=== PATIENT | female | born 1945 | race African-American/Black ===

== ENCOUNTER 2019-11-21 14:11 | Inpatient (IN) | payer OTHER ==
[2019-11-21] VITALS (23 sets, daily range): BP systolic 70–202; BP diastolic 48–179
[~2019-11-21] VITALS: Ht 177.8 cm; Wt 85.4 kg
--- NOTE | ~2019-11-21 | EEG ---
[facility] [place] [address] ELECTROENCEPHALOGRAM Name: EMILEE LEMUS Room #: 239-P [facility] IN M.R.#: [id number] Admission: 11/21/19 Attend Phys: Adrian Rutherford MD Discharge: Date of : 43 Report #: [id number] THIS REPORT FOR: //name// CC: Adrian Roche DATE OF SERVICE: 12/04/2019 This patient is being evaluated for altered mental status. EEG is very poorly formed and disorganized. Background activity is about 5-6 Hz and 15 microvolt. Photic stimulation is unremarkable. The patient is unresponsive. IMPRESSION: This is a very disorganized and poorly formed EEG. This can occur with encephalopathy or advanced dementia. However, clinical correlation is recommended. Thank you very much for this referral. By: 1000 1023 Adama Whitlock MD /nt
--- NOTE | ~2019-11-21 | EMS ---
[address] [address] EMS Patient Care Report Name: EMILEE LEMUS Room #: 236-P [facility] IN M.R.#: [id number] Admission: 11/21/19 Attend Phys: Adrian Rutherford MD Discharge: Date of : 43 Report #: [id number] THIS REPORT FOR: //name// Report Transmitted: 11/28/2019 15:48 EMS Care Summary [place], [place]/[facility] Incident [id number] @ 11/21/2019 13:39 Incident Location [id number] [place] [address] [address] [place] Patient EMILEE LEMUS Female, 73 Years 1945 Patient Address [address] [place] [address] Patient History Dementia,Hypertension (HTN),Gastro-Esophageal Reflux Disease (GERD),Osteoarthritis,Anemia,Peripheral Vascular Disease,Type 2 Diabetes, Patient Allergies No known allergies, Patient Medications Novolog, Metformin, Aricept, Lisinopril, Aspirin, Levemir, Tylenol, Chief Complaint Acute hypoxia Disposition Transported No Lights/[place] Dispatch Reason Breathing Problem Transported To [facility] Narrative Station 28 responded immediately to the scene of Breathing Problems. Arrived on scene and staff meets us at doors with patient. [facility] [address] [place] [address] EMS Patient Care Report Name: EMILEE LEMUS Room #: 236-P [facility] IN .Samuel.#: [id number] Admission: 11/21/19 Attend Phys: Adrian Rutherford MD Discharge: Date of : 43 Report #: [id number] M528 dons full PPE including N95's, then meets staff who have patient in bed (EMS then asked them to place mask on pt). Staff report they have been unable to get patient's SpO2 > 88% despite supplemental o2. Patient reportedly COVID19 + by testing, but staff do not know when or where patient was tested. Rather than keeping patient on supplemental o2, they removed patient prior to EMS arrival. Cot next to bed and patient moved across via sheet pull. Secured on via straps, rails up, then patient moved out to ambulance. Exhaust vent on, divider door closed. Primary ALS assessment performed. Vitals established. Pt resumed on o2 via NC, but increased to 6 LPM. Transport then initiated to [facility]. Contacted with a 3-5 minute ETA, and report given. During transport, patient's SpO2 improves to mid-90's on 6 LPM. Attendant remained behind patient, in captains chair. Arrived at and patient to ER 15. Report to RN then care released. Initial Vitals @14:04P: 109,R: 21,BP: 136/80,Pain: 0/10,GCS: 14,CO: 3,SpO2: 96,Revised Trauma: 12, @13:56P: 104,R: 24,BP: 145/78,GCS: 14,SpO2: 80,Revised Trauma: 12, Assessments @13:55MENTAL:Confused,SKIN:HEENT:LUNG SOUNDS:ABDOMEN:PELVIS//GI:EXTREMITIES:PULSE:NEURO: Impression COVID-19 - Confirmed by testing Procedures @13:55ALS AssessmentResponse: UnchangedSucceeded@13:57Oxygen FlowRate: 6 Device: Nasal Cannula (NC) Response: ImprovedSucceeded Timeline 13:37,Call Received 13:37,Dispatch Notified 13:39,Dispatched 13:42,En Route 13:45,On Scene 13:48,At Patient 13:55,ALS Assessment,Response: UnchangedSucceeded, 13:56,BP: 145/78 M,PULSE: 104,RR: 24 R,SPO2: 80 Ox,ETCO2: ,BG: ,PAIN: ,GCS: 14, 13:57,Oxygen FlowRate: 6 Device: Nasal Cannula (NC) Response: ImprovedSucceeded, 14:04,BP: 136/80 M,PULSE: 109,RR: 21 R,SPO2: 96 Ox,ETCO2: ,BG: ,PAIN: 0,GCS: 14, [address] [address] EMS Patient Care Report Name: SCOTTY LEMUSALDINE Room #: 236-P [facility] IN ..#: [id number] Admission: 11/21/19 Attend Phys: Adrian Rutherford MD Discharge: Date of : 43 Report #: [id number] 14:06,Depart Scene 14:06,At Destination 14:21,Call Closed Disclaimer v1.1 Copyright 2020 [employer] This EMS Care Summary contains data elements from the applicable legal record (which may be displayed differently). It is designed to provide pertinent information for the following purposes: continuity of care, clinical quality, and state data reporting. The complete legal record is available to ED staff and administrators of the receiving hospital in [employer] Patient Tracker. All data is provided "as is."
[~2019-11-21 14:11] MED LIST: ACETAMINOPHEN325 M1 PO; ARICEPT10 M1 PO; ARICEPT10 MG PO; COMPAZINE10 M1 PO; ESCITALOPRAM OXA5 MG PO; FERRO-TIME325 MG PO; GLUCOPHAGE1000 MG PO; HUMALOG100 UNIT/1 SQ; IBUPROFEN 600600 M1 PO; LANTUS SC; LEVEMIR FL100 UNIT/2 SUBQ; LISINOPRIL20 MG PO; LOPERAMIDE 2 MG2 M1 PO; LOPRESSOR25 PO; MECLIZINE HCL25 M1 PO; MI ACID LIQUID355 ML PO; MOM PO; NORCO 5-325 TA1 EACH PO; NOVOLOG100 UNIT/1 SUBQ; PRINIVIL20 MG PO; ZOCOR; ZOFRAN4 MG PO
[2019-11-21 14:48] LABS: ABSOLUTE NEUTROPHILS 5.6 thou/uL (1.4-8.2); BASOPHILS 0.3 % (0.0-2.0); EOSINOPHILS 1.8 % (0.0-3.0); HEMATOCRIT 38.9 % (37.0-47.0); HEMOGLOBIN 12.9 gm/dL (12.0-15.0); MCHC 33.2 g/dL (28.0-37.0); MCV 72.2 fL (80.0-100.0); MONOCYTES 9.9 % (1.0-8.0); PLATELET COUNT 296 thou/uL (150-400); RBC 5.38 mil/uL (4.20-5.00); RDW 15.2 % (10.5-14.5); WBC 7.9 thou/uL (4.0-11.0)
[2019-11-21 14:59] LABS: ANION GAP 15 mmol/L (7-16); BUN 46 mg/dL (7-18); CALCIUM 9.1 mg/dL (8.5-10.1); CHLORIDE 103 mmol/L (98-107); CO2 19 mmol/L (21-32); CREATININE 2.1 mg/dL (0.6-1.0); GLUCOSE 229 mg/dL (74-106); POTASSIUM 4.3 mmol/L (3.5-5.1); SODIUM 137 mmol/L (136-145)
[2019-11-21 15:09] LABS: ALBUMIN 2.3 g/dL (3.4-5.0); DIRECT BILIRUBIN 0.1 mg/dL (<0.1-0.2); SGOT 57 U/L (15-37); SGPT 30 U/L (30-65); TOTAL BILIRUBIN 0.4 mg/dL (0.2-1.0); TOTAL PROTEIN 7.9 g/dL (6.4-8.2); TROPONIN-I <0.06 ng/mL (<0.06)
[2019-11-21] MEDS ORDERED: ASPIR 8181 M1 PO (15:29)
[2019-11-21 15:49] LABS: BE(vivo) -8.1 mmol/L (-2 to +3); HCO3 14.6 mmol/L (22.0-26.0); sO2 89.2 % (92.0-98.0)
[2019-11-21 15:50] LABS: PCO2 23.5 mmHg (35.0-45.0)
[2019-11-22] VITALS (75 sets, daily range): BP systolic 99–148; BP diastolic 47–85
[2019-11-22 04:53] LABS: HEMATOCRIT 35.1 % (37.0-47.0); HEMOGLOBIN 11.6 gm/dL (12.0-15.0); MCH 24.1 pg (26.0-34.0); RBC 4.81 mil/uL (4.20-5.00); RDW 15.5 % (10.5-14.5); WBC 8.6 thou/uL (4.0-11.0)
[2019-11-22 05:08] LABS: ALBUMIN 1.9 g/dL (3.4-5.0); CALCIUM 8.3 mg/dL (8.5-10.1); CREATININE 2.1 mg/dL (0.6-1.0); POTASSIUM 4.4 mmol/L (3.5-5.1); TOTAL BILIRUBIN 0.3 mg/dL (0.2-1.0); TOTAL PROTEIN 6.7 g/dL (6.4-8.2)
[2019-11-22 05:19] LABS: BE(vivo) -12.7 mmol/L (-2 to +3); HCO3 11.7 mmol/L (22.0-26.0); PO2 157.1 mmHg (80.0-100.0); sO2 98.9 % (92.0-98.0)
[2019-11-22 05:20] LABS: PCO2 23.9 mmHg (35.0-45.0); pH 7.309 (7.360-7.450)
--- NOTE | 2019-11-22 07:54 | EKG ---
[facility] [place] [address] ELECTROCARDIOGRAM REPORT Name: EMILEE LEMUS Room #: 236-P [facility] IN M.R.#: [id number] Admission: 11/21/19 Attend Phys: Adrian Rutherford MD Discharge: Date of : 43 Report #: [id number] THIS REPORT FOR: cc: Yayo Roche MD, Srinath MD Lundgren,Albert Cummings MD [facility] ~ THIS REPORT FOR: //name// [facility] ED Test Date: 2019-11-21 Test Time: 14:18:51 Pat Name: EMILEE LEMUS Department: Room: [facility] Gender: F Head Custodian: : 1945 Requested By: Cyndee Lea Order Number: [id number] MD: Albert Mcdaniels Measurements Intervals [place] Rate: 105 P: 41 SD: 147 QRS: -3 QRSD: 90 T: 46 QT: 349 QTc: 462 Interpretive Statements Sinus tachycardia Abnormal R-wave progression, early transition Left ventricular hypertrophy Compared to ECG 03/02/2012 16:12:47 Heart rate has increased Electronically Signed On 11-22-2019 7:54:49 CDT by Albert Mcdaniels [email or web address] <ELECTRONICALLY SIGNED> By: Albert Mcdaniels MD, [facility] 11/22/19 0754 1418 1418 Albert Mcdaniels MD, [facility] /EPI
[2019-11-22 13:10] LABS: BE(vivo) -13.8 mmol/L (-2 to +3); HCO3 12.5 mmol/L (22.0-26.0); PCO2 30.5 mmHg (35.0-45.0); PO2 102.3 mmHg (80.0-100.0); sO2 96.7 % (92.0-98.0)
[2019-11-22 13:12] LABS: pH 7.229 (7.360-7.450)
[2019-11-22 15:16] LABS: CALCIUM 8.3 mg/dL (8.5-10.1)
[2019-11-22 15:20] LABS: POTASSIUM 5.4 mmol/L (3.5-5.1)
[2019-11-22 16:14] LABS: URINE BILIRUBIN NEGATIVE (Negative); URINE BLOOD TRACE (Negative); URINE CLARITY CLOUDY; URINE COLOR YELLOW; URINE GLUCOSE-RANDOM* 2+ (Negative); URINE KETONES TRACE (Negative); URINE LEUKOCYTES 2+ (Negative); URINE NITRITE NEGATIVE (Negative); URINE PROTEIN (DIPSTICK) 1+ (Negative); URINE UROBILINOGEN 0.2 E.U./dl (0.2-1.0)
[2019-11-22 16:27] LABS: AMORPHOUS URATES Moderate /LPF (None Seen); BACTERIA >30 Many /HPF (None Seen); CASTS None Seen /LPF (None Seen); SQUAMOUS None Seen /LPF (0-3); URINE RBC 0-2 Rare /HPF (0-2); URINE WBC >25 Many /HPF (0-5)
[2019-11-23] VITALS (28 sets, daily range): BP systolic 105–182; BP diastolic 51–80
[2019-11-23 02:06] LABS: HIV ANTIBODY Non Reactive (Non Reactive)
[2019-11-23 05:05] LABS: BE(vivo) -11.4 mmol/L (-2 to +3); HCO3 14.7 mmol/L (22.0-26.0); PCO2 33.8 mmHg (35.0-45.0); PO2 76.8 mmHg (80.0-100.0); sO2 93.6 % (92.0-98.0)
[2019-11-23 05:06] LABS: pH 7.256 (7.360-7.450)
[2019-11-23 05:33] LABS: ABSOLUTE NEUTROPHILS 6.1 thou/uL (1.4-8.2); BASOPHILS 0.3 % (0.0-2.0); EOSINOPHILS 0.1 % (0.0-3.0); HEMATOCRIT 34.1 % (37.0-47.0); HEMOGLOBIN 11.1 gm/dL (12.0-15.0); LYMPHOCYTES 6.8 % (24.0-44.0); MCH 23.8 pg (26.0-34.0); MCHC 32.4 g/dL (28.0-37.0); MCV 73.4 fL (80.0-100.0); MONOCYTES 4.8 % (1.0-8.0); PLATELET COUNT 260 thou/uL (150-400); RBC 4.65 mil/uL (4.20-5.00); RDW 15.6 % (10.5-14.5); WBC 6.9 thou/uL (4.0-11.0)
[2019-11-23 06:24] LABS: PROTIME 10.5 Seconds (9.3-11.4)
[2019-11-23 06:29] LABS: FIBRINOGEN 728.9 mg/dL (210-360)
[2019-11-23 06:57] LABS: ALBUMIN 1.9 g/dL (3.4-5.0); CALCIUM 8.8 mg/dL (8.5-10.1); CREATININE 1.9 mg/dL (0.6-1.0); TOTAL BILIRUBIN 0.3 mg/dL (0.2-1.0); TOTAL PROTEIN 6.9 g/dL (6.4-8.2)
--- NOTE | 2019-11-23 12:36 | HC ---
[facility] [place] [address] CONSULTATION Name: EMILEE LEMUS Room #: 236-P [facility] IN M.R.#: [id number] Admission: 11/21/19 Attend Phys: Adrian Rutherford MD Discharge: Date of : 43 Report #: [id number] THIS REPORT FOR: cc: Yayo Roche MD,Pk Arrington MD, MD ~ CC: Adrian Roche DATE OF SERVICE: 11/22/2019 ENDOCRINE CONSULTATION NOTE CONSULTING PHYSICIAN: Dr. Rutherford. REASON FOR CONSULTATION: Uncontrolled type 2 diabetes mellitus. HISTORY OF PRESENT ILLNESS: This is a 73-year-old female patient whose medical background is significant for multiple medical issues including type 2 diabetes mellitus, dementia, peripheral vascular disease and GERD who presented to the ER yesterday after being referred from her [facility] facility due to progressive issues with shortness of breath. It appears that the patient was one of several care home residents who were diagnosed with COVID-19 positive test. On arrival, the patient was found to be in hypoxemic respiratory failure and ended up being placed on mechanical ventilation. The patient is known to have type 2 diabetes mellitus and is maintained on a regimen of Levemir insulin 45 units at bedtime in addition to NovoLog insulin 18 units before meals as well as metformin 1000 mg b.i.d. Specific blood glucose data are not available to review at this point in time. Also, the patient is known to have hypertension and is maintained on lisinopril 20 mg b.i.d. REVIEW OF SYSTEMS: Cannot be obtained at this point in time due to the patient's sedated and intubated state, but reportedly: PULMONARY: Shortness of breath, cough. PSYCHIATRIC: Confusion, behavioral changes. CARDIAC: Negative for chest pain, palpitations, or syncope. PAST MEDICAL HISTORY: 1. Type 2 diabetes mellitus. 2. Peripheral vascular disease. 3. Iron deficiency anemia. 4. Dementia. 5. GERD. [facility] [address] [place] [address] CONSULTATION Name: LEMUSEMILEE Room #: [address] [place] [address] IN M.R.#: [id number] Admission: 11/21/19 Attend Phys: Adrian Rutherford MD Discharge: Date of : 43 Report #: [id number] 6. Acute hypoxemic respiratory failure. 7. COVID-19 positive state. 8. Metabolic acidosis. 9. Metabolic encephalopathy. ACTIVE OUTPATIENT MEDICATIONS: Include Levemir insulin 45 units at bedtime, NovoLog insulin 18 units before meals, metformin 1000 mg b.i.d., Tylenol q. 8 hours p.r.n., aspirin 81 mg daily, lisinopril 20 mg b.i.d., ferrous sulfate 325 mg p.o. daily, ibuprofen 600 mg q. 8 hours p.r.n., metoprolol 25 mg p.o. b.i.d., [place] 5/325 mg tablet t.i.d., escitalopram 5 mg daily, Imodium 2 mg q. 6 hours p.r.n., Compazine. ALLERGIES: No known drug allergies. FAMILY HISTORY: Not available. SOCIAL HISTORY: The patient resides at a usp facility. There are no reports of active tobacco or alcohol use. PHYSICAL EXAMINATION: GENERAL: -Sudanese female patient, intubated and sedated. VITAL SIGNS: Blood pressure is 108/52 mmHg, heart rate is 95 beats per minute, respirations 22 per minute, temperature 37.3 degrees Celsius. CONSTITUTIONAL: Intubated and sedated. HEENT: Anicteric sclerae. NECK: No thyromegaly. CHEST: Limited air entry bilaterally with diffuse rales and rhonchi. No crackles. HEART: Regular rate and rhythm without murmurs or gallops. ABDOMEN: Soft, lax. No guarding. Sluggish bowel sounds. EXTREMITIES: Lower extremity exam, edema. No skin breaks. NEUROLOGIC: Sedated. PSYCHIATRIC: Sedated. LABORATORY RESULTS: On arrival, blood glucose was 290 and went up to 479 mg/dL. Sodium 137, potassium 5.4, chloride 106, CO2 of 16, anion gap 15, BUN 42, creatinine 2.0, glucose 479. AST 40, total bilirubin 0.3, calcium 8.3, alkaline phosphatase 68, ALT 23, total protein 6.7, albumin 1.9, EGFR 30. Troponin less than 0.06, triglycerides 119. White blood count 8.6, hemoglobin 11.6, hematocrit 35.9, platelets 256. Hemoglobin A1c 8.5%. COVID-19 testing was positive. ASSESSMENT AND PLAN: 1. Type 2 diabetes mellitus. As noted above, the patient is known to have type 2 diabetes mellitus that is [facility] [address] [facility] [place] [address] CONSULTATION Name: LEMUSEMILEE Room #: 236-P [facility] IN M.R.#: [id number] Admission: 11/21/19 Attend Phys: Adrian Rutherford MD Discharge: Date of : 43 Report #: [id number] insulin dependent. Judging by her hemoglobin A1c, it appears that she runs blood glucose values in the mid to high 100 mg/dL range, but she has had an outlook of severe hyperglycemia during her hospital stay so far. This very well might be due to the current acute illness state as well as the use of high dose glucocorticoid therapy. Given the patient's glucose values and background therapy, I will start the patient on Lantus insulin 25 units b.i.d. as well as Humalog supplemental scale, moderate intensity, with a plan to monitor her blood glucose values a.c. and at bedtime. That said, I would have a low threshold to initiate therapy with IV insulin as per [facility] IV insulin protocol should we see that the patient is not changing her glycemic outlook quickly with this intervention. 2. Hypertension. The patient's level of blood pressure control is adequate. Continue this current regimen. 3. Pneumonia. The patient is COVID-19 positive and is currently dealing with the issue of hypoxemic failure. She is mechanically ventilated and is receiving high dose glucocorticoid therapy as well as antibiotic therapy with Maxipime. The pulmonary team is following. I certainly appreciate this consultation by Dr. Rutherford. I have reviewed the patient's clinical care notes, laboratory data, and other pertinent information for more than 35 minutes in addition to my encounter time with the patient. <ELECTRONICALLY SIGNED> By: Pk Kelley MD 11/23/19 1236 1611 1659 Ahjennifer Kelley MD /nt
[2019-11-24] VITALS (23 sets, daily range): BP systolic 98–162; BP diastolic 40–80
[2019-11-24 06:21] LABS: CALCIUM 8.5 mg/dL (8.5-10.1); CREATININE 1.6 mg/dL (0.6-1.0); POTASSIUM 3.9 mmol/L (3.5-5.1)
[2019-11-25] VITALS (24 sets, daily range): BP systolic 112–162; BP diastolic 56–77
[2019-11-25 07:13] LABS: CALCIUM 8.6 mg/dL (8.5-10.1); CREATININE 1.6 mg/dL (0.6-1.0); POTASSIUM 3.4 mmol/L (3.5-5.1)
[2019-11-25 11:39] LABS: HEMATOCRIT 32.9 % (37.0-47.0); MCH 23.8 pg (26.0-34.0); MCHC 33.4 g/dL (28.0-37.0); MCV 71.1 fL (80.0-100.0); RBC 4.63 mil/uL (4.20-5.00); RDW 15.8 % (10.5-14.5); WBC 7.3 thou/uL (4.0-11.0)
[2019-11-26] VITALS (19 sets, daily range): BP systolic 101–166; BP diastolic 52–85
[2019-11-26 05:46] LABS: HEMATOCRIT 33.8 % (37.0-47.0); HEMOGLOBIN 11.3 gm/dL (12.0-15.0); MCH 24.1 pg (26.0-34.0); MCHC 33.4 g/dL (28.0-37.0); MCV 72.1 fL (80.0-100.0); RBC 4.69 mil/uL (4.20-5.00); RDW 16.2 % (10.5-14.5); WBC 7.6 thou/uL (4.0-11.0)
[2019-11-26 05:50] LABS: CALCIUM 8.5 mg/dL (8.5-10.1); CREATININE 1.5 mg/dL (0.6-1.0); POTASSIUM 3.4 mmol/L (3.5-5.1)
[2019-11-27] VITALS (17 sets, daily range): BP systolic 89–170; BP diastolic 48–82
[2019-11-27 05:29] LABS: BE(vivo) -6.6 mmol/L (-2 to +3); HCO3 16.8 mmol/L (22.0-26.0); PCO2 27.6 mmHg (35.0-45.0); pH 7.401 (7.360-7.450); sO2 90.7 % (92.0-98.0)
[2019-11-27 08:04] LABS: HEMATOCRIT 33.1 % (37.0-47.0); HEMOGLOBIN 11.1 gm/dL (12.0-15.0); MCH 24.1 pg (26.0-34.0); MCHC 33.7 g/dL (28.0-37.0); MCV 71.4 fL (80.0-100.0); RBC 4.63 mil/uL (4.20-5.00); RDW 15.8 % (10.5-14.5)
[2019-11-27 08:12] LABS: CALCIUM 8.3 mg/dL (8.5-10.1); CREATININE 1.6 mg/dL (0.6-1.0); POTASSIUM 3.5 mmol/L (3.5-5.1)
[2019-11-28] VITALS (24 sets, daily range): BP systolic 90–143; BP diastolic 47–74
[2019-11-28 06:15] LABS: HEMATOCRIT 34.9 % (37.0-47.0); HEMOGLOBIN 11.5 gm/dL (12.0-15.0); MCH 23.7 pg (26.0-34.0); MCV 71.9 fL (80.0-100.0); RBC 4.86 mil/uL (4.20-5.00); RDW 15.9 % (10.5-14.5); WBC 10.6 thou/uL (4.0-11.0)
[2019-11-28 06:35] LABS: CALCIUM 8.3 mg/dL (8.5-10.1); CREATININE 1.6 mg/dL (0.6-1.0); POTASSIUM 3.4 mmol/L (3.5-5.1)
[2019-11-29] VITALS (23 sets, daily range): BP systolic 90–154; BP diastolic 49–75
[2019-11-29 05:25] LABS: CALCIUM 8.1 mg/dL (8.5-10.1); CREATININE 1.9 mg/dL (0.6-1.0); POTASSIUM 3.6 mmol/L (3.5-5.1)
[2019-11-30] VITALS (26 sets, daily range): BP systolic 116–183; BP diastolic 53–87
[2019-11-30 06:41] LABS: HEMATOCRIT 33.3 % (37.0-47.0); HEMOGLOBIN 10.7 gm/dL (12.0-15.0); MCH 23.2 pg (26.0-34.0); MCV 72.6 fL (80.0-100.0); RBC 4.59 mil/uL (4.20-5.00); RDW 15.8 % (10.5-14.5); WBC 9.2 thou/uL (4.0-11.0)
[2019-11-30 07:06] LABS: CALCIUM 8.3 mg/dL (8.5-10.1); CREATININE 1.7 mg/dL (0.6-1.0); POTASSIUM 3.3 mmol/L (3.5-5.1)
[2019-12-01] VITALS (25 sets, daily range): BP systolic 106–165; BP diastolic 44–93
[2019-12-01 05:49] LABS: MCH 23.4 pg (26.0-34.0); MCHC 32.3 g/dL (28.0-37.0); MCV 72.3 fL (80.0-100.0); RBC 4.7 mil/uL (4.20-5.00); RDW 15.6 % (10.5-14.5); WBC 11.4 thou/uL (4.0-11.0)
[2019-12-01 06:04] LABS: CALCIUM 8.5 mg/dL (8.5-10.1); CREATININE 1.6 mg/dL (0.6-1.0)
[2019-12-01 06:06] LABS: POTASSIUM 3.9 mmol/L (3.5-5.1)
[2019-12-02] VITALS (24 sets, daily range): BP systolic 106–147; BP diastolic 63–81
[2019-12-02 05:04] LABS: HEMATOCRIT 34.9 % (37.0-47.0); HEMOGLOBIN 11.3 gm/dL (12.0-15.0); MCH 23.4 pg (26.0-34.0); MCHC 32.4 g/dL (28.0-37.0); MCV 72.1 fL (80.0-100.0); RBC 4.84 mil/uL (4.20-5.00); RDW 15.6 % (10.5-14.5); WBC 13.1 thou/uL (4.0-11.0)
[2019-12-02 05:12] LABS: CALCIUM 8.6 mg/dL (8.5-10.1); POTASSIUM 4.5 mmol/L (3.5-5.1)
[2019-12-03] VITALS (23 sets, daily range): BP systolic 97–159; BP diastolic 44–76
[2019-12-03 04:43] LABS: CALCIUM 8.4 mg/dL (8.5-10.1); CREATININE 2.2 mg/dL (0.6-1.0); POTASSIUM 4.2 mmol/L (3.5-5.1)
[2019-12-03 09:16] LABS: BE(vivo) -8.8 mmol/L (-2 to +3); HCO3 14.9 mmol/L (22.0-26.0); PO2 86.9 mmHg (80.0-100.0); pH 7.375 (7.360-7.450); sO2 96.6 % (92.0-98.0)
[2019-12-04] VITALS (20 sets, daily range): BP systolic 125–157; BP diastolic 45–79
[2019-12-04 03:59] LABS: BE(vivo) -4.1 mmol/L (-2 to +3); PO2 104.1 mmHg (80.0-100.0); pH 7.401 (7.360-7.450); sO2 97.8 % (92.0-98.0)
[2019-12-04 06:08] LABS: ABSOLUTE NEUTROPHILS 7.2 thou/uL (1.4-8.2); BASOPHILS 1.1 % (0.0-2.0); EOSINOPHILS 3.6 % (0.0-3.0); HEMATOCRIT 29.4 % (37.0-47.0); HEMOGLOBIN 10.1 gm/dL (12.0-15.0); LYMPHOCYTES 13.7 % (24.0-44.0); MCH 24.9 pg (26.0-34.0); MCHC 34.3 g/dL (28.0-37.0); MCV 72.7 fL (80.0-100.0); MONOCYTES 8.9 % (1.0-8.0); PLATELET COUNT 285 thou/uL (150-400); POLYS 72.7 % (36.0-66.0); RBC 4.04 mil/uL (4.20-5.00); RDW 15.8 % (10.5-14.5); WBC 9.9 thou/uL (4.0-11.0)
[2019-12-04 06:59] LABS: ALBUMIN 1.8 g/dL (3.4-5.0); CALCIUM 8.2 mg/dL (8.5-10.1); POTASSIUM 4.1 mmol/L (3.5-5.1); TOTAL BILIRUBIN 0.3 mg/dL (0.2-1.0)
[2019-12-05] VITALS (19 sets, daily range): BP systolic 117–174; BP diastolic 46–79
[2019-12-05 00:07] LABS: ADENOVIRUS Negative (Negative); INFLUENZA A Negative (Negative); INFLUENZA B Negative (Negative); METAPNEUMOVIRUS Negative (Negative); PARAINFLUENZA 1 Negative (Negative); PARAINFLUENZA 2 Negative (Negative); PARAINFLUENZA 3 Negative (Negative); RHINOVIRUS Negative (Negative); RSV A Negative (Negative); RSV B Negative (Negative)
[2019-12-05 05:30] LABS: HCO3 17.5 mmol/L (22.0-26.0); PCO2 31.9 mmHg (35.0-45.0); PO2 83.8 mmHg (80.0-100.0); pH 7.358 (7.360-7.450)
--- NOTE | 2019-12-05 09:42 | HC ---
[facility] [place] [address] CONSULTATION Name: EMILEE LEMUS Room #: 239- ADM IN M.R.#: [id number] Admission: 11/21/19 Attend Phys: Adrian Rutherford MD Discharge: Date of : 43 Report #: [id number] THIS REPORT FOR: cc: Yayo Roche MD,Yayo Whitlock,Adama Arroyo MD ~ CC: Adrian Roche DATE OF SERVICE: 12/04/2019 HISTORY OF PRESENT ILLNESS: This is a 73-year-old female patient who was evaluated by me to prognosticate this patient. The patient is unable to provide any history at all. I talked to Dr. Cardoso, the hospitalist. Then, I talked to the family. They tell me that this patient is living in a [facility] for several years. She needed help in her day-to-day activities. She is able to recognize some of the relative, but not all the relative. She usually does not know month or year. She developed COVID and, as I understand, may have suffered some respiratory problem. Record indicate when she came to Emergency Room, she was on 4 liters of oxygen. She was tachycardic. She was tachypneic. Now, she is without any sedation and she is not doing much according to the nurses. REVIEW OF SYSTEMS: Indicate that she has a history of renal problem, hypoxic respiratory failure, metabolic acidosis, sepsis secondary to above. This was a relevant 14-point review of system. PAST MEDICAL HISTORY: Positive for what appeared to be significant dementia in the baseline. FAMILY HISTORY: Unremarkable. SOCIAL HISTORY: She lives in a [facility]. PHYSICAL EXAMINATION: Very limited. She does respond to pain. When I tried to examine her pupils, she repeatedly shuts her eyes tight. This is a voluntary response. I cannot do any further examination I attempted because of that. She appeared to be tachycardic because her blood pressure is 157/79, pulse is 118, respiration is 29. LABORATORY DATA: Her estimated GFR is 30 and it has been around there for a long time, but in 2008, it was in 50s, but this admission it has been low. IMPRESSION: This patient has multiple problems. It looks like she has a pretty significant dementia in the baseline. She has hydrocephalus, which is an incidental finding, although maybe contributing to her chronic dementia. Even if you treat hydrocephalus, the dementia portion is not reversible. Even on the [facility] [address] [place] [address] CONSULTATION Name: EMILEE LEMUS Room #: 239-P [facility] IN [facility]#: [id number] Admission: 11/21/19 Attend Phys: Adrian Rutherford MD Discharge: Date of : 43 Report #: [id number] basis of that, she should be a DNR. She has developed multiple other problems that include renal failure, respiratory problems, etc. Those add to her preexisting problem, which are very severe. Family has been given the option, and as I said even without all these illnesses, she should be a DNR, but the family still wants to continue all the life support, but they said they will think about it. I am not sure what we can do if that is what their wishes were and that is what the patient's wishes were. I will discuss the patient with you and this patient will not meet the criteria for the brain and we need to basically do what the family wants us to do. In short this patient's quality of life quite poor even before present hospitalisation and case can be made that she should have been DNR even then. It is expected to be worst with the present illness. But daughter wants her to be full code. There is not much can be done because she is not brain and need to follow what they say. I will sign off. Please call if any quesion Thank you very much for this referral. <ELECTRONICALLY SIGNED> By: Adama Whitlock MD 12/05/19 0942 23 34 Adama Whitlock MD /nt
[2019-12-06] VITALS (21 sets, daily range): BP systolic 94–153; BP diastolic 36–74
[2019-12-06 04:58] LABS: BE(vivo) -2.5 mmol/L (-2 to +3); HCO3 21.1 mmol/L (22.0-26.0); PO2 92.9 mmHg (80.0-100.0); pH 7.424 (7.360-7.450); sO2 97.3 % (92.0-98.0)
--- NOTE | 2019-12-06 11:54 | HC ---
[facility] [place] [address] CONSULTATION Name: EMILEE LEMUS Room #: 239-P [facility] IN M.R.#: [id number] Admission: 11/21/19 Attend Phys: Adrian Rutherford MD Discharge: Date of : 43 Report #: [id number] THIS REPORT FOR: cc: Yayo Roche MD,Pk Arrington MD, MD ~ CC: Adrian Roche DATE OF SERVICE: 12/04/2019 ENDOCRINE CONSULTATION NOTE CONSULTING PHYSICIAN: Dr. Rutherford. REASON FOR CONSULTATION: Uncontrolled type 2 diabetes mellitus. HISTORY OF PRESENT ILLNESS: This is a 73-year-old female patient whose medical background is significant for multiple medical issues including type 2 diabetes mellitus, peripheral vascular disease as well as dementia. The patient presented on the day of admission as a transfer from her snf facility with complaints of shortness of breath. The patient was found to be positive for COVID-19 amongst 16 other people at her snf facility. She was admitted for further care and monitoring where she shortly after that developed respiratory failure and was intubated. Again, the patient's background is noted for type 2 diabetes mellitus and her snf facility's records show that she had been treated with a combination of Levemir insulin 45 units at bedtime, NovoLog insulin 18 units with meals, metformin 1000 mg b.i.d. The patient is currently sedated, intubated and inaccessible for history and I am not aware of her level of control prior to her admission and there is no documentation as to whether or not she has issues with diabetic retinopathy, nephropathy or neuropathy. Further review of her records indicates that she is hypertensive and is maintained on therapy with lisinopril 20 mg b.i.d. and demented and is on treatment with Aricept 10 mg daily. REVIEW OF SYSTEMS: Cannot be obtained at this point in time due to the patient's intubated and sedated state. PAST MEDICAL HISTORY: 1. Type 2 diabetes mellitus. 2. Hypertension. 3. Dementia. 4. Peripheral vascular disease. [address] [address] CONSULTATION Name: ALLANEMILEE Room #: 239-P [facility] IN ..#: [id number] Admission: 11/21/19 Attend Phys: Adrian Rutherford MD Discharge: Date of : 43 Report #: [id number] 5. Multiple abscesses in the past. OUTPATIENT MEDICATIONS: Include: 1. Levemir insulin 45 units at bedtime. 2. NovoLog insulin 18 units t.i.d. a.c. 3. Metformin 1000 mg b.i.d. 4. Tylenol 650 mg q. 8 hours p.r.n. 5. Aspirin 81 mg daily. 6. Aricept 10 mg at bedtime. 7. Lisinopril 20 mg b.i.d. ALLERGIES: No known drug allergies. FAMILY HISTORY: Noncontributory. SOCIAL HISTORY: The patient resides at a snf facility. There is no documentation of tobacco use or alcohol use. PHYSICAL EXAMINATION: GENERAL: Elderly female patient who is intubated and sedated. VITAL SIGNS: Blood pressure is 134/64 mmHg, heart rate is 105 beats per minute, respirations 21 per minute, temperature 36.5 degrees Celsius. CONSTITUTIONAL: The patient is intubated, sedated, does not appear to be in pain or distress. HEENT: Anicteric sclerae. NECK: Supple, no thyromegaly. CHEST: Noted for limited air entry bilaterally with scattered rales, rhonchi, no crackles. HEART: Regular rate and rhythm without murmurs or gallops. ABDOMEN: Soft, lax. No guarding. Sluggish bowel sounds. EXTREMITIES: Lower extremity exam is noted for trace ankle edema. No skin breaks, no ulcerations. Pedal pulses are not palpable. NEUROLOGIC: Sedated. PSYCHIATRIC: Sedated. LABORATORY DATA: Blood glucose over the past 48 hours has been predominantly under 180 mg/dL with few excursions over 200 mg/dL. Sodium 144, potassium 4.1, chloride 111, CO2 of 19, anion gap of 14, BUN 46, creatinine 2.0, glucose 141. AST 25, total bilirubin 0.3, direct bilirubin 0.1, calcium 8.2, alkaline phosphatase 70, ALT 21, total protein 7.0, albumin 1.8, EGFR 30. Troponin is negative. BNP 525. White blood count 9.9, hemoglobin 10.1, hematocrit 29.4, platelets 285. TSH 0.661, that is from 2009. ASSESSMENT AND PLAN: 1. Type 2 diabetes mellitus. As noted above, the patient is maintained on basal bolus insulin therapy along with metformin as well. There is no [address] [address] CONSULTATION Name: EMILEE LEMUS Room #: 239-P [facility] IN M.R.#: [id number] Admission: 11/21/19 Attend Phys: Adrian Rutherford MD Discharge: Date of : 43 Report #: [id number] documentation that is readily available to have a better understanding of her level of control prior to admission. I will obtain a hemoglobin A1c to facilitate better understanding. Currently, the patient is maintained on a combination of Lantus insulin 20 units daily in addition to Humalog supplemental scale that is exercised q.6 hours and being used at a high intensity. I would rather drop this to moderate intensity and raise the patient's Lantus insulin level to 28 units daily in order to achieve more consistency under 180 mg/dL. I will continue with the blood glucose monitoring q. 6 hours going forward. 2. Hypertension. The patient's level of blood pressure control is adequate on the current regimen, she is to continue with the same. 3. Pneumonia. The patient is COVID-19 positive and is currently dealing with issues of acute hypoxemic respiratory failure and is intubated, mechanically ventilated. The patient is being maintained on anticoagulation and is status post steroids and convalescent plasma as remdesivir is not readily available. The pulmonary team is actively following the patient. I have reviewed the patient's clinical care notes, laboratory data, and other pertinent clinical information for over 35 minutes in addition to my encounter time with the patient. I certainly appreciate this consultation by Dr. Rutherford. <ELECTRONICALLY SIGNED> By: Pk Kelley MD 12/06/19 1154 1603 1711 Pk Kelley MD /nt
[2019-12-07] VITALS: BP 135/61
[2019-12-07 01:00] VITALS: BP 132/51
[2019-12-07 02:01] VITALS: BP 140/70
[2019-12-07 04:01] VITALS: BP 153/78
[2019-12-07 08:01] VITALS: BP 108/37
[2019-12-07 12:00] VITALS: BP 114/40
== END 2019-12-07 12:39 | DRG 870 ==
LOC: ER 14:11 → ICU 15:33 → EROBS 15:33 → ICU 18:28
PROVIDERS: Emergency Medicine; Hospitalist; Internal Medicine; Internal Medicine Pulmonary Disease; Pediatrics; Specialist; ADMIT Hospitalist; ATTEND Hospitalist
PROC: 02H633Z Insertion of Infusion Device into Right Atrium, Percutaneous Approach (ICD-10-PCS; principal; 2019-11-21)
PROC: 5A09357 Assistance with Respiratory Ventilation, Less than 24 Consecutive Hours, Continuous Positive Airway Pressure (ICD-10-PCS; principal; 2019-11-21)
PROC: 5A1955Z Respiratory Ventilation, Greater than 96 Consecutive Hours (ICD-10-PCS; 2019-11-22)
PROC: 0BH17EZ Insertion of Endotracheal Airway into Trachea, Via Natural or Artificial Opening (ICD-10-PCS; 2019-11-22)
PROC: 30233K1 Transfusion of Nonautologous Frozen Plasma into Peripheral Vein, Percutaneous Approach (ICD-10-PCS; 2019-11-23)
DX: A41.89 Other specified sepsis (principal); U07.1 COVID-19; J96.01 Acute respiratory failure with hypoxia; J12.89 Other viral pneumonia; G92 Toxic encephalopathy; N17.9 Acute kidney failure, unspecified; I10 Essential (primary) hypertension; E11.51 Type 2 diabetes mellitus with diabetic peripheral angiopathy without gangrene; F03.90 Unspecified dementia, unspecified severity, without behavioral disturbance, psychotic disturbance, mood disturbance, and anxiety; K21.9 Gastro-esophageal reflux disease without esophagitis; Z66 Do not resuscitate; R65.20 Severe sepsis without septic shock; E11.65 Type 2 diabetes mellitus with hyperglycemia; E87.5 Hyperkalemia; D64.89 Other specified anemias; E87.8 Other disorders of electrolyte and fluid balance, not elsewhere classified; E87.6 Hypokalemia; Z51.5 Encounter for palliative care; Z79.82 Long term (current) use of aspirin; Z79.899 Other long term (current) drug therapy; Z79.01 Long term (current) use of anticoagulants
CPT/HCPCS: 10078